=== PATIENT | male | born 2000 | race Caucasian/White ===

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

== ENCOUNTER 2022-01-22 00:09 | Emergency (ER) | payer MEDICAID, OTHER ==
[2022-01-22] MEDS ORDERED: Bupivacaine 0.5% 10 ML SDV INJECT ONE (01:05)
[2022-01-22] MEDS ORDERED: Lidocaine 1% with EPINEPHrine 1:100,000 10 ML MDV INJECT ONE (01:05)
[2022-01-22] MEDS ORDERED: Lidocaine 1% with EPINEPHrine 1:100,000 20 ML MDV INJECT ONE (01:34)
[2022-01-22] MEDS ORDERED: Penicillin V Potassium 500 MG Tab PO STA (02:28)
== END 2022-01-22 02:45 | disposition home or self-care (01) ==
LOC: JD.ED 00:09
DX: K08.89 Other specified disorders of teeth and supporting structures (principal); Z86.16 Personal history of COVID-19
CPT/HCPCS: 64400; 99282; A9270; J3490

== ENCOUNTER 2022-09-21 19:54 | Emergency (ER) | payer BC ==
[2022-09-21] MEDS ORDERED: Diphtheria,Pertussis(Acell),Tetanus Vaccine 0.5 ML Syringe IM ONE (20:50)
== END 2022-09-21 21:27 | disposition home or self-care (01) ==
LOC: JD.ED 19:54
DX: S61.012A Laceration without foreign body of left thumb without damage to nail, initial encounter (principal); Z86.16 Personal history of COVID-19; Z23 Encounter for immunization; W26.8XXA Contact with other sharp object(s), not elsewhere classified, initial encounter
CPT/HCPCS: 90471; 90715; 99282